=== PATIENT | male | born 2005 | race Caucasian/White ===

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

== ENCOUNTER → 2023-06-06 14:36 | Outpatient (BNVA) | payer OTHER, SELFPAY | PROVIDERS: Visit Provider Nurse Practitioner Family | DX: Z48.89 Encounter for other specified surgical aftercare (principal); Z98.890 Other specified postprocedural states; Z87.81 Personal history of (healed) traumatic fracture | CPT/HCPCS: 73100; 73110 ==

== ENCOUNTER 2024-09-17 15:00 | Emergency (ER) | payer OTHER, SELFPAY ==
[2024-09-17 15:25] VITALS: BP 126/74; PULSE 76; RESP 16; TEMP 36.6; O2SAT 99
--- NOTE | 2024-09-17 15:30 | W.ED.UPPEXIN ---
HPI - Extremity Injury (Upper) General: Chief Complaint: Extremity Injury, Upper Stated Complaint: wants referral to ortho Time Seen by Provider: 09/17/24 15:30 Source: patient Mode of arrival: ambulatory Limitations: no limitations History of Present Illness: Patient is a 19-year-old male who presents to ED today requesting a referral to orthopedics. Patient states several days ago he was working out in [place] using fiberoptic cable, when he accidentally cut the volar aspect of his left wrist using a box knife razor blade. He was seen at an emergency department in [place] and had laceration repaired. They were concerned for tendon/nerve injury so told him to follow up with orthopedics when he returned home. He complains of decreased ROM to left thumb and index finger and also having paresthesias to these digits. MD complaint: injury to: left and wrist Onset (ago): day(s) Other Extremity Injury: Left: wrist Other injuries: none Place: work Severity: moderate Relieving factors: immobilization Exacerbating factors: movement of extremity Context: laceration Associated symptoms: Reports weakness in extremities (L thumb/index fingers) Treatments prior to arrival: bandage Related Data Previous Rx's Medication Instructions Recorded ondansetron 8 mg disintegrating 8 mg PO TID PRN nausea and 05/10/23 tablet vomiting #15 tabs Allergies Allergy/AdvReac Type Severity Reaction Status Date / Time No Known Allergies Allergy Verified 06/06/23 14:32 Review of Systems Musc: Reports: joint pain (L wrist); Denies: extremity pain or extremity swelling Neuro: Reports: weakness in extremities (L thumb/index fingers) and sensory changes (L thumb/index fingers) [facility] ED PFSH: Medical History No pertinent family history Surgical History No pertinent past surgical history Physical Exam Const: COMMON NORMALS: no acute distress, average body habitus, patient oriented x3, no limitations, healthy appearing, alert and well nourished Extremity: GENERAL: Yes normal exam except as noted LEFT UPPER EXTREMITY: Yes wrist OTHER: 3cm laceration overlying L volar wrist with intact sutures; wound appears clean and well approximated; he complaints of decreased flexion to L thumb and index finger; decreased strength against resistance noted; decreased thumb abduction as well; complains of paresthesias to these 2 digits as well; no vascular concerns Neuro: COMMON NORMALS: patient oriented x3 SENSORIUM/ORIENTATION: Yes alert Course Consultations: Consultation #1: Dr. Woodard-recommending referral to hand surgery; tried to get patient into Dr. Marrufo but orthopedics stated he did not have any availability next week; Dr. Woodard recommended he see a specialist within a week of injury Consultation #2: Dr. Simons hand surgery (surgeon spoke directly to transfer line) and stated he could not see patient this week as he was already double booked all week; did recommend he see a hand surgeon this week for follow up Consultation #3: Dr. Jose hand surgery-recommend patient to check with his [employer] due to this being a worker's comp injury but otherwise he can call the office tomorrow morning and schedule appointment; recommends splint Vital Signs: Vital signs: Vital Signs Temperature 97.8 F 09/17/24 15:25 Pulse Rate 76 09/17/24 15:25 Respiratory Rate 16 09/17/24 15:25 Blood Pressure 126/74 09/17/24 15:25 Pulse Oximetry 99 09/17/24 15:25 Oxygen Delivery Me thod Room Air 09/17/24 15:25 MDM - Extremity Injury (Upper) Medical Decision Making Patient with L volar wrist laceration with concern for tendon/nerve involvement as he has weakness of thumb/index finger flexion and thumb abduction and paresthesias to these digits. He has spoken to HR through his [employer] and they just recommend referral to hand surgeon. He will call Dr. Richard's office in the morning to schedule an appointment. Medical Records I reviewed the patient's medical records. No radiology studies performed this visit Discharge Plan Discharge Patient Disposition: Home Clinical Impression: Laceration of left wrist with tendon involvement Qualifiers: Encounter type: initial encounter Qualified Code(s): S61.512A - Laceration without foreign body of left wrist, initial encounter Condition: Stable Prescriptions: No Action ondansetron 8 mg tablet,disintegrating 8 mg PO TID PRN (Reason: nausea and vomiting) Qty: 15 0RF Discharge Orders: Discharge ED (Routine); Ordered 09/17/24 Ordered By: Amalia Rome Activity Restrictions/Additional Instructions: Please call Dr. Richard's office with [facility] hand surgery tomorrow at [phone]. Tell them I discussed with Dr. Richard and you need a first available appointment. Coding Level of Care Code ED Coin Purse Framer for Jagdish Schuster
--- NOTE | 2024-09-17 15:46 | DCPLANNER ---
Message sent to Ortho for follow up
[2024-09-17 18:22] VITALS: BP 134/71; PULSE 73; O2SAT 99
== END 2024-09-17 18:22 | disposition home or self-care (01) ==
PROVIDERS: Emergency Provider Physician Assistant
DX: S61.512D Laceration without foreign body of left wrist, subsequent encounter (principal); W26.0XXD Contact with knife, subsequent encounter
CPT/HCPCS: 99282